=== PATIENT | female | born 1945 ===

== ENCOUNTER 2016-12-12 07:33 | Emergency (ER) | payer MEDICARE, MEDICAID ==
[~2016-12-12 07:33] MED LIST: ASPI-628 PO; CALC-881 PO; CHOL100094 PO; FERR324T2 PO; INS7030 SUBQ; LISI2.5T PO; LOVA20TA PO; METF500T4 PO; OMEP40CA36 PO
--- NOTE | 2016-12-12 07:40 | ED.REPORT ---
HPI-General Illness Date of Service Dec 12, 2016 ED Provider: Sanjay Dewitt DO The patient is a 71 year old female with history of diabetes mellitus type II, hypertension, hypercholesterolemia, GERD, anemia, polio at age 1, and developmental delay, who was brought to the emergency department by her sister who is her caregiver. Over the last few days the patient has complained of LUQ/ rib pain. Her sister states she has not been acting normally or completing her normal daily activities. She also reports that she noticed red bumps around her perineal area while changing her diaper. The patient is not able to provide a substantial history. Nursing Notes Stated Complaint: LEFT SIDE PAIN Nursing Notes Reviewed: Yes Allergies: Coded Allergies: No Known Allergies (Unverified , 03/02/15) Scheduled Aspirin (Aspir 81) 81 Mg Tablet.dr 81 MG PO DAILY Calcium Carb & Cit/Vitamin D3 (Calcium + Vitamin D3 Caplet) 1 Each Tablet.er 1 EACH PO BID Cholecalciferol (Vitamin D3) (Vitamin D3) 1,000 Unit Capsule 2,000 UNIT PO DAILY Ferrous Sulfate (Ferrous Sulfate) 324 Mg Tablet.dr 324 MG PO BID Glipizide ER (Glipizide ER) 2.5 Mg Tab.er.24 2.5 MG PO DAILY Lovastatin (Lovastatin) 20 Mg Tablet 20 MG PO DAILYWD Scheduled PRN Tramadol (Tramadol) 50 Mg Tablet 50 MG PO Q4H PRN PRN For Pain General Time Seen by MD: 07:38 Chief Complaint Other (left-side pain) Hx Obtained From: Patient (limited), Superintendent Transmission (sister) Arrived By: Wheelchair Sudden in Onset?: No Symptom Duration: Since onset Location: : Abdomen (LUQ/rib pain) Quality: Painful Severity: Current: Moderate Severity: Maximum: Moderate Recent Healthcare: No recent doctor visit, No recent hospitalization Similar Sx Previous: No Past Medical History Past Medical History Diabetes, type [id number] Hypertension Hypercholesterolemia GERD Anemia Received blood transfusions October 2013 Post polio syndrome, wheelchair bound Some developmental delay Past Surgical History Cholecystectomy Smoking History Never Smoker Social History Lives with her sister who is her manager quality compliance Alcohol Use: Denies alcohol use Other Social History: Good social support, Local resident Ambulatory Status Wheelchair Review of Systems +not acting normally, not eating normally Full Review of Systems GI: Reports: Abdominal pain (LUQ/rib pain) Skin: Reports Rash Complete sys rev & neg: except as marked. Physical Exam Vital Signs Vital Signs Date Time Temp Pulse Resp B/P Pulse Ox O2 Delivery O2 Flow Rate FiO2 12/12/16 10:08 36.7 80 125/39 100 Room Air 12/12/16 07:41 37.4 81 15 136/38 100 Room Air Initial VS: Reviewed Head / Eyes: Atraumatic, Normocephalic, PERRL ENT: Mucous membranes moist, Conjunctiva normal, No scleral icterus Neck: Supple, Non-tender, Full range of motion Respiratory: Breath sounds normal, Clear to auscultation, No respiratory distress Cardiovascular: Regular rate & rhythm, Heart sounds normal, Intact distal pulses Lymphatic: No lymphadenopathy Extremities: Vascular intact, Neuro intact, No swelling, No tenderness Skin: Warm, Dry, No cyanosis Neurologic: Nonfocal Psychiatric: Mood/affect normal, Behavior normal, Normal thought content General/Constitutional: Awake, Alert Abdomen: Soft, No guarding, No rebound, BS normoactive, No distention, No hernia, No palpable mass, No pulsatile mass Tenderness/Guarding/Rebound: Positive: Tender LLQ... Back: No midline vertebral tend Flank / Spine / Paraspinal: Positive: Flank tender L Female Genitourinary: Baby Sitter present External exam is normal with the exception of a right-sided scar that looks similar to a previous area of folliculitis. Interpretation & Diagnostics Interpretation & Diagnostics: CMP from 09/17/2016: BUN 24 CO2: 20 Creatinine: 1.57 Glucose: 210 Potassium: 3.9 Sodium: 142 Lab Results Interpretation Result Diagram: 12/12/16 0715 12/12/16 0715 Test 12/12/16 07:15 12/12/16 09:10 White Blood Count 11.0th/mm3 (3.8-10.1) Red Blood Count 2.96mil/mm3 (3.90-5.20) Hemoglobin 9.4g/dL (12.0-15.6) Hematocrit 27.8% (35.0-46.0) Mean Corpuscular Volume 93.9fL (81-100) Mean Corpuscular Hemoglobin 31.8pg (27.0-35.0) Mean Corpuscular Hemoglobin Concent 33.8% (32.0-37.0) Red Cell Distribution Width 12.9% (12.3-15.4) Platelet Count 154bil/L (150-400) Neutrophils (%) (Auto) 79.3% (40-74) Lymphocytes (%) (Auto) 11.1% (14-46) Monocytes (%) (Auto) 6.2% (4-12) Eosinophils (%) (Auto) 3.0% (0-5) Basophils (%) (Auto) 0.2% (0-3) Sodium Level 140mEq/L (134-144) Potassium Level 3.4mEq/L (3.5-5.2) Chloride Level 106mEq/L (97-108) Carbon Dioxide Level 20mmol/L (18-29) Blood Urea Nitrogen 22mg/dL (8-27) Creatinine 1.87mg/dL (0.57-1.00) Estimat Glomerular Filtration Rate 38mL/min (>59) Glucose Level 152mg/dL (60-99) Lactic Acid Level 0.9mmol/L (0.4-2.0) Calcium Level 9.3mg/dL (8.5-10.1) Magnesium Level 1.4mg/dL (1.6-2.6) Total Bilirubin 0.3mg/dL (0.0-1.2) Aspartate Amino Transf (AST/SGOT) 15U/L (0-50) Alanine Aminotransferase (ALT/SGPT) 13U/L (0-32) Alkaline Phosphatase 83U/L (25-165) Total Protein 6.3g/dL (6.4-8.4) Albumin 3.4g/dL (3.4-5.0) Lipase 8U/L (13-60) Urine Color Straw (YELLOW) Urine Appearance Hazy (CLEAR,HAZY) Urine pH 5.5 (5.0-8.0) Urine Specific [place] 1.025 (1.003-1.035) Urine Protein 100mg/dL (NEG,TRACE) Urine Glucose (UA) Negativemg/dL (NEGATIVE) Urine Ketones Negativemg/dL (NEGATIVE) Urine Occult Blood Large (NEGATIVE) Urine Nitrite Negative (NEGATIVE) Urine Bilirubin Negative (NEGATIVE) Urine Urobilinogen Normalmg/dL (NORMAL) Urine Leukocyte Esterase Negative (NEGATIVE) Urine RBC >50/hpf (0-2) Urine WBC 0-5/hpf (0-5) Urine Epithelial Cells Occasional/hpf (NONE-MOD) Urine Crystals None seen (NONE SEEN) Urine Bacteria None/hpf (NONE-FEW) Urine Hyaline Casts None/lpf (NONE) Urine Granular Casts None seen (NONE SEEN) Urine Waxy Casts None seen (NONE SEEN) Urine Red Blood Cell Casts None seen (NONE SEEN) Urine White Blood Cell Casts None seen (NONE SEEN) Urine Mucus None seen (None Seen) Urine Trichomonas None seen (NONE SEEN) Urine Yeast None (NONE SEEN) Urinalysis Comment None Urine Culture Reflexed Not indicated ECG Interpretation Time: 08:23 Interpreted by: ED physician Normal ECG Interpretation: Normal ECG w/ rate of... (77), Normal rate, Normal sinus rhythm, No acute ischemic changes, Normal QRS, Normal axis, Normal intervals, Adequate tracing CT Abd / Pelvis Interpretation IMPRESSION: 1. 4 mm left UVJ stone causing moderate to severe left-sided hydroureteronephrosis. 2. Atherosclerosis including visualized coronary vasculature. 3. Small hiatal hernia. 4. Sequela chronic pancreatitis. 5. Status post cholecystectomy. Dictated by: Courtney Ndiaye MD, PhD on 12/12/2016 at 9:25 Study type: Abdominal CT no contrast Interpretation / Wet Read by: Interpret - Radiologist Re-Eval/Medical Decision Med Decision/Clinical Course Findings consistent with kidney stone without superimposed infection or sepsis. Patient is generally comfortable. There is a minimal increase in baseline troponin from several months ago though I do not think this is clinically significant. Patient be discharged with pain management. Return and follow-up precautions given Source of Hx: Old records, Superintendent Transmission, Family Time of Eval: 09:33 Re-Evaluation/Progress Note: Rechecked the patient. Waiting CT scan reading. Time of Eval: 09:40 Re-Evaluation/Progress Note: Discussed CT findings, diagnosis, and plan for discharge. All questions were addressed. Counseled Regarding: Diagnosis, Lab results, Need for follow-up, When/why to return to ED Discharge & Departure Primary Impression: Left ureteral stone Additional Impression: Hydroureteronephrosis Disposition: Home Discharge Condition All VS Reviewed: Yes Condition: Stable Patient Instructions: Renal Colic (ED) Additional Instructions: Thank you for entrusting us with Eufemia's care today. There is evidence of a kidney stone on the left side. This likely explains her symptoms. She can take Tramadol, 400 mg Ibuprofen every 8 hours, and 650 mg Tylenol every 6 hours. Make sure she is drinking plenty of fluids. Followup with her regular doctor next week for recheck. Return for any new or concerning symptoms. Referrals: Rimma Garner (PCP) Scribjennifer Attestation Portions of this note were transcribed by Faiza Martinez. I, Dr. Dewitt personally performed the history, physical exam and medical decision-making; I reviewed and confirmed the accuracy of the information in the transcribed note. Signed by: Lon Boyle, 12/11/2016 at 0950. copies to: Rimma Garner Timothy S DO Dec 12, 2016 07:40 Faiza Martinez Dec 12, 2016 07:41
[2016-12-12 07:41] VITALS: BP 136/38; PULSE 81; RESP 15; O2SAT 100
[2016-12-12] MEDS ORDERED: GLIP2.5T2 PO (07:55)
[2016-12-12] MEDS ORDERED: 0.9% Sodium Chloride 1,000 ML IV ONE (08:02)
[2016-12-12] MEDS ORDERED: Ondansetron 2 mg/mL 2 mL Inj IVPUSH PRN (08:05)
[2016-12-12 08:22] LABS: BASOPHILS % (AUTO) 0.2 % (0-3); MONOCYTES % (AUTO) 6.2 % (4-12); Mean Corpuscular Hemoglobin 31.8 pg (27.0-35.0); Mean Corpuscular Volume 93.9 fL (81-100); NEUTROPHILS % (AUTO) 79.3 % (40-74); Platelet Count 154 bil/L (150-400)
[2016-12-12 08:45] LABS: Magnesium 1.4 mg/dL (1.6-2.6)
[2016-12-12 09:31] LABS: APPEARANCE,URINE HAZY (CLEAR,HAZY); COLOR,URINE STRAW (YELLOW); PH,URINE 5.5 (5.0-8.0)
[2016-12-12 09:32] LABS: OCCULT BLOOD,URINE LARGE (NEGATIVE); UROBILINOGEN,URINE NORMAL (NORMAL)
--- NOTE | 2016-12-12 09:34 | DRSVH ---
PROCEDURE: CT ABDOMEN AND PELVIS WITHOUT CONTRAST ([id number]) INDICATIONS: left sided abd pain TECHNIQUE: Noncontrast 5 mm thick sections acquired from the diaphragms to the symphysis. 5 mm coronal and sagi ttal reformats were then performed. For radiation dose reduction, the following was used: automated exposure control, adjustment of mA and/or kV according to patient size. COMPARISON: [facility], CT, ABD/PELVIS W/CON (PN), 11/18/2013, 13:11. FINDINGS: Image quality: Excellent. ABDOMEN: Lung bases: Lung bases are clear. Heart size is normal. Atherosclerotic calcifications noted in the visualized coronary vasculature. Solid organs: Liver and spleen are normal in size. Gallbladder is surgically absent. Pancreas is n ormal in contours. Coarse calcifications in the head and uncinate process of the pancreas are stable compared to the prior examination. No adrenal nodules. 4 mm stone is noted in the left UVJ which is c ausing moderate to severe left-sided hydroureteronephrosis. No right-sided renal stones or hydronephr osis. Mild left-sided perinephric stranding is noted. Peritoneum and bowel: Small hiatal hernia is noted. Unenhanced bowel loops demonstrate normal wall th ickness and caliber. Scattered diverticula noted in the colon without evidence diverticulitis. No angelica e air. Small amount of free fluid noted in the lower pelvis. Nodes and vessels: No retroperitoneal or mesenteric adenopathy by size criteria. Aorta and inferior vena cava are normal in caliber. Scattered atherosclerotic calcifications noted in the abdominal pel mariya vasculature. Miscellaneous: No ventral hernias. PELVIS: Genitourinary: Bladder wall thickness is normal. Calcified uterine fibroid is stable compared to celina or examination. Uterus is atrophic. Miscellaneous: No inguinal hernias or adenopathy. Bones: No suspicious bony lesions. Chronic appearing L2 compression fracture is noted. No acute vert ebral body compression fractures. Spinal degenerative disease and facet arthropathy are noted. IMPRESSION: 1. 4 mm left UVJ stone causing moderate to severe left-sided hydroureteronephrosis. 2. Atherosclerosis including visualized coronary vasculature. 3. Small hiatal hernia. 4. Sequela chronic pancreatitis. 5. Status post cholecystectomy. Dictated by: Courtney Ndiaye MD, PhD on 12/12/2016 at 9:25 Approved by: Courtney Ndiaye MD, PhD on 12/12/2016 at 9:33
[2016-12-12] MEDS ORDERED: TRAM50TA2 PO (09:42)
[2016-12-12 10:08] VITALS: BP 125/39; PULSE 80; O2SAT 100
== END 2016-12-12 10:06 | disposition home or self-care (01) ==
LOC: SED 07:33
DX: N13.2 Hydronephrosis with renal and ureteral calculous obstruction (principal); E11.9 Type 2 diabetes mellitus without complications; I10 Essential (primary) hypertension; K21.9 Gastro-esophageal reflux disease without esophagitis; Z86.69 Personal history of other diseases of the nervous system and sense organs; Z90.49 Acquired absence of other specified parts of digestive tract; Z79.82 Long term (current) use of aspirin
CPT/HCPCS: 36415; 51701; 74176; 80053; 81000; 83605; 83690; 83735; 85025; 93005; 96360; 99285; J7030